=== PATIENT | female | born 1980 | race Two or more races ===

== ENCOUNTER 2019-02-15 04:41 | Inpatient (IN) | payer SELFPAY ==
[~2019-02-15] VITALS: Ht 167.6 cm; Wt 106.1 kg
[2019-02-15] MEDS ORDERED: LIDOCAINE 1% PF 30 ML VIAL. INJ PRN (05:15)
[2019-02-15] MEDS ORDERED: MAG HYDROX/ALUMINUM HYD/SIMETH 30 ML ORAL.SUSP PO PRN ×2 (05:15→13:00)
[2019-02-15] MEDS ORDERED: ONDANSETRON PF 4 MG/2 ML VIAL. IV PRN (05:15)
[2019-02-15] MEDS ORDERED: OXYTOCIN 30 UNIT/500 ML PREMIX 500 ML IV PRN ×4 (05:15→13:00)
[2019-02-15] MEDS ORDERED: TERBUTALINE 1 MG/ML VIAL. SQ PRN (05:15)
[2019-02-15] MEDS ORDERED: 0.9 % SODIUM CHLORIDE 10 ML DISP.SYRIN. IV PRN ×2 (05:15→13:00)
[2019-02-15] MEDS ORDERED: ACETAMINOPHEN 325 MG TABLET. PO PRN ×2 (05:15→13:00)
[2019-02-15] MEDS ORDERED: CITRIC ACID/SODIUM CITRATE 30 ML SOLUTION. PO PRN (05:15)
[2019-02-15] MEDS ORDERED: AMPICILLIN SODIUM 2 GM in IV NORMAL SALINE 100ML 100 ML IV ONE (05:30)
[2019-02-15] MEDS: IV RINGERS,LACTATED 1000ML 1,000 ML IV SCH ×3 (05:42→10:00)
[2019-02-15 05:57] LABS: BILIRUBIN,URINE NEGATIVE (NEG); CLARITY,URINE CLEAR; COLOR,URINE YELLOW; NITRITE,URINE NEGATIVE (NEG); PROTEIN,URINE NEGATIVE (NEG-TRACE); UROBILINOGEN,URINE 0.2 mg/dL (0.2 mg/dL)
[2019-02-15 06:08] LABS: BASO % 0 % (0-3); EOS # 0.2 x10^3/uL (0.0-0.7); EOS % 2 % (0-3); HEMATOCRIT 33.3 % (36.0-47.0); HEMOGLOBIN 11.5 g/dL (12.0-15.5); LYMPH # 2.2 x10^3/uL (1.0-4.8); LYMPH % 29 % (24-48); MEAN CORPUSCULAR HEMOGLOBIN 30 pg (25-35); MEAN CORPUSCULAR HGB CONC 35 g/dL (31-37); MEAN CORPUSCULAR VOLUME 87 fL (79-100); MONO # 0.5 x10^3/uL (0.0-1.1); MONO % 7 % (0-9); NEUT # 4.7 x10^3/uL (1.8-7.7); NEUT % 62 % (31-73); PLATELET COUNT 193 x10^3/uL (140-400); RED BLOOD COUNT 3.83 x10^6/uL (3.50-5.40); RED CELL DISTRIBUTION WIDTH 14.7 % (11.5-14.5); WHITE BLOOD COUNT 7.6 x10^3/uL (4.0-11.0)
[2019-02-15 06:26] LABS: BACTERIA,URINE MANY /HPF (0-FEW); SQUAMOUS EPITHELIAL CELL,UR MANY /LPF; WBC,URINE 20-40 /HPF (0-4)
[2019-02-15] MEDS ORDERED: OXYTOCIN PREMIX 30 UNIT/500 ML NS BAG. IV ONE (07:00)
[2019-02-15] MEDS ORDERED: LIDOCAINE 2% PF 5 ML VIAL. ONE (09:18)
[2019-02-15] MEDS ORDERED: L&D EPIDURAL SYRINGE 50 ML ONE (09:51)
[2019-02-15] MEDS: AMPICILLIN SODIUM 1 GM in IV NORMAL SALINE 50ML 50 ML IV SCH ×2 (10:01→13:30)
[2019-02-15] MEDS ORDERED: IV RINGERS,LACTATED 1000ML 1,000 ML IV SCH (10:04)
[2019-02-15] MEDS ORDERED: BUPIVACAINE MPF 0.25% 30 ML VIAL. EPID PRN (10:15)
[2019-02-15] MEDS ORDERED: ROPIVacaine 0.2% IN 0.9%NACL PF 40 MG/20 ML DISP.SYRIN. EPID PRN (10:15)
[2019-02-15] MEDS ORDERED: L&D EPIDURAL SYRINGE 50 ML EPID PRN (10:15)
[2019-02-15] MEDS ORDERED: NALOXONE 0.4 MG/ML VIAL. IV PRN (10:15)
[2019-02-15] MEDS ORDERED: MMR per PROTOCOL. MC PRN (12:54)
[2019-02-15] MEDS ORDERED: PHENYLEPH/MINERAL OIL/PETROLAT RECTAL OINTMENT TUBE. RC PRN (13:00)
[2019-02-15] MEDS ORDERED: MAGNESIUM HYDROXIDE 2,400 MG/30 ML ORAL.SUSP. PO PRN (13:00)
[2019-02-15] MEDS ORDERED: SIMETHICONE 80 MG TAB.CHEW PO PRN (13:00)
[2019-02-15] MEDS ORDERED: BENZOCAINE 20% TOPICAL AEROSOL SPRAY 57GM CAN. TP PRN (13:00)
[2019-02-15] MEDS ORDERED: diphenhydrAMINE HCL 25 MG CAPSULE PO PRN (13:00)
[2019-02-15] MEDS ORDERED: HYDROCORTISONE 1% TOPICAL OINTMENT 30GM TUBE. TP PRN (13:00)
[2019-02-15] MEDS ORDERED: ZOLPIDEM 5 MG TABLET. PO PRN (13:00)
[2019-02-15] MEDS ORDERED: IBUPROFEN 400 MG TABLET. PO PRN (13:00)
[2019-02-15] MEDS ORDERED: IBUPROFEN 400 MG TABLET. PO SCH (14:00)
--- NOTE | 2019-02-15 14:40 | PDOC ---
VAGINAL DELIVERY DATE DATE: 02/15/19 TIME: 14:29 : 5 Para: 3 EDC: Feb 15, 2019 VAGINAL DELIVERY: VTX VACCUM ASSISTED: No PLACENTA: Spontaneous SEX: Male WEIGHT 8#6oz Nuchal Cord: No Amniotic Fluid: Clear PAIN: Epidural EPISIOTOMY: Yes EXTENSION: No EBL 300cc COMPLICATIONS None CONDITION Stable Signs of Intrauterine Infectio: None Shoulder Dystocia: No DIAGNOSIS MARYANN Malone MD Feb 15, 2019 14:40
--- NOTE | 2019-02-15 14:49 | PDOC1 ---
OB - History Hx of Present Care: Good Care Ultrasounds: Normal mid trimester US Obstetrical Complications: None Medical Complications: None Past Family/Social History * Past Medical, Surgical, Family and Obstetric Histories reviewed from chart. Blood Type: O+ Rubella: Immune RPR/VDRL: Negative GBS Status: Negative HBsAG: Negative OB - Chief Complaint & HPI Date of Admission: Date of Admission: Feb 15, 2019 at 04:41 Chief Complaint/History : 5 Para: 3 EDC: Feb 15, 2019 Reason for admission: induction of labor Admission Nurse Assessment Rev: Yes OB - Admission Exam Physical Exam Vitals: VS - Last 72 Hours, by Label Date Time Temp Pulse Resp B/P (MAP) Pulse Ox O2 Delivery O2 Flow Rate FiO2 02/15/19 11:02 16 Room Air HEENT: Normal, Nasal Mucosa Normal, Oropharynx Normal, Moist Membranes, Fontanelles Normal Heart: Regular Rate Lungs: Clear, Equal Abdomen: Gravid Extremities: Normal Pulses, No tenderness or swelling Reflexes: Normal Cervical Dilatation: 3cm Effacement: 50% Station: Ballotable Membranes: Intact Amniotic Fluid: Clear Heart Rate: Normal Accelerations: Accelerations Present Contractions on Admission: >10 Minutes Apart Assessment/Plan TIUP Induction ACSVD MARYANN RIVAS MD Feb 15, 2019 14:49
[2019-02-15 17:00] VITALS: BP 117/83
[2019-02-15] MEDS: FERROUS SULFATE 325 MG TABLET. PO SCH (17:00)
[2019-02-15 20:15] VITALS: BP 126/79
[2019-02-15] MEDS: IBUPROFEN 400 MG TABLET. PO PRN (22:36)
[2019-02-16 01:10] VITALS: BP 113/65
[2019-02-16] MEDS: IBUPROFEN 400 MG TABLET. PO PRN ×3 (04:37→20:06)
[2019-02-16 06:35] VITALS: BP 113/64
--- NOTE | 2019-02-16 07:51 | PDOC ---
Provider Note Provider Note Doing well VSS uterus NTTP FU in AM Vital Sign - Last 24 Hours 02/15/19 02/15/19 02/15/19 02/15/19 11:02 15:35 17:00 20:15 Temp 98.0 98.3 98.0 98.3 Pulse 82 73 Resp 16 16 18 18 B/P (MAP) 117/83 (94) 126/79 (95) Pulse Ox 96 O2 Delivery Room Air Room Air Room Air 02/16/19 02/16/19 01:10 06:35 Temp 98.3 98.1 98.3 98.1 Pulse 84 71 Resp 20 18 B/P (MAP) 113/65 (81) 113/64 (80) Pulse Ox 96 95 O2 Delivery Room Air Room Air Intake and Output 02/15/19 02/15/19 02/16/19 14:59 22:59 06:59 Intake Total 300 ml 600 ml Balance 300 ml 600 ml CBC - BMP 02/16/19 04:20 MARYANN RIVAS MD Feb 16, 2019 07:51
[2019-02-16] MEDS: FERROUS SULFATE 325 MG TABLET. PO SCH ×2 (08:09→20:06)
[2019-02-16 10:04] VITALS: BP 121/72
[2019-02-16] MEDS: DOCUSATE SODIUM 100 MG CAPSULE. PO SCH (10:11)
[2019-02-16 15:13] VITALS: BP 117/64
[2019-02-16] MEDS ORDERED: DOCUSATE SODIUM 100 MG CAPSULE. PO PRN (19:15)
[2019-02-16 20:00] VITALS: BP 134/83
[2019-02-17] MEDS: IBUPROFEN 400 MG TABLET. PO PRN (06:23)
[2019-02-17 06:25] VITALS: BP 123/65
[2019-02-17] MEDS: DOCUSATE SODIUM 100 MG CAPSULE. PO SCH (08:02)
[2019-02-17] MEDS: FERROUS SULFATE 325 MG TABLET. PO SCH (08:02)
[2019-02-17 11:20] VITALS: BP 118/69
--- NOTE | 2019-02-17 14:14 | PDOC3 ---
OB DISCHARGE SUMMARY DATE OF ADMISSION: 02/15/19 DATE OF DISCHARGE: 02/17/19 REASON FOR ADMISSION: Induction of labor PROCEDURES: None INTRAPARTUM PROCEDURES: Spontanous Vag Deliv PROCEDURES: None OPERATIONS: None DISCHARGE DIAGNOSIS: Term Delivered DISCHARGE INFORMATION: Activity, Diet HOSPITAL COURSE Unremarkable CONDITION AT DISCHARGE Stable MARYANN RIVAS MD Feb 17, 2019 14:14
[2019-02-17] MEDS ORDERED: HYDR-3164 PO (14:24)
[2019-02-17] MEDS ORDERED: NAPR-514 PO (14:24)
[2019-02-17 16:00] VITALS: BP 112/72
== END 2019-02-17 17:05 | disposition home or self-care (01) | DRG 807 ==
LOC: 3 SO LND 04:41 → 3 NORTH 17:35
PROVIDERS: ADMIT Specialist; ATTEND Specialist
PROC: 10E0XZZ Delivery of Products of Conception, External Approach (ICD-10-PCS; principal; 2019-02-15)
PROC: 0W8NXZZ Division of Female Perineum, External Approach (ICD-10-PCS; 2019-02-15)
PROC: 00HU33Z Insertion of Infusion Device into Spinal Canal, Percutaneous Approach (ICD-10-PCS; 2019-02-15)
PROC: 3E0R3BZ Introduction of Anesthetic Agent into Spinal Canal, Percutaneous Approach (ICD-10-PCS; 2019-02-15)
DX: O80 Encounter for full-term uncomplicated delivery (principal); Z37.0 Single live birth; Z3A.40 40 weeks gestation of pregnancy
CPT/HCPCS: 36415; 81001; 85014; 85025; 86850; 86900; 86901; 87086; J0290; J2590; J7120; G0378